=== PATIENT | male | born 1990 ===

== ENCOUNTER 2020-04-04 07:42 | Outpatient (CLI) | payer OTHER, SELFPAY ==
[2020-04-07 08:17] LABS: SARS-CoV-2 RNA Undetected (Undetected); SARS-CoV-2 Specimen Source Nasopharynx
== END 2020-04-04 08:02 ==
PROVIDERS: Visit Provider Nurse Practitioner Family
DX: Z11.59 Encounter for screening for other viral diseases (principal)
CPT/HCPCS: U0003